=== PATIENT | male | born 1985 | race Two or more races ===

== ENCOUNTER → 2018-08-01 | Outpatient (CLI) | payer OTHER | END | disposition home or self-care (01) | LOC: CT 09:06 | DX: J33.8 Other polyp of sinus (principal); J34.2 Deviated nasal septum | CPT/HCPCS: 70486 ==

== ENCOUNTER → 2023-12-13 | Outpatient (CLI) | payer OTHER | END | disposition home or self-care (01) | LOC: EEVIPCON 09:00 → CT 10:02 | DX: J30.9 Allergic rhinitis, unspecified (principal) | CPT/HCPCS: 70486 ==